=== PATIENT | female | born 1980 | race American Indian/Alaskan Native ===

== ENCOUNTER 2018-05-01 23:00 | Emergency (ER) | payer BC ==
[2018-05-01 23:06] VITALS: RESP 20
[2018-05-01] MEDS ORDERED: DiphenhydrAMINE 50 mg/ml Inj IVP STA (23:18)
[2018-05-01] MEDS ORDERED: Sodium Chloride 0.9% 1,000 ML IV ONE (23:18)
--- NOTE | 2018-05-01 23:22 | C.PDOC ---
History Of Present Illness 37 year old female presents to the ED complaining of headache that began yesterday. She reports onset of headache was gradual. Associated symptoms include dizziness. She denies any fever, vision changes, n/v/d or any other symptoms. Time Seen by Provider: 05/01/18 23:09 Chief Complaint (Nursing): Headache History Per: Patient History/Exam Limitations: no limitations Onset/Duration Of Symptoms: Days (1) Current Symptoms Are (Timing): Still Present Quality: "Pain" Preceeding Symptoms: None Associated Symptoms: denies: Blurred Vision, Nausea, Vomiting Past Medical History Reviewed: Historical Data, Nursing Documentation, Vital Signs Vital Signs: Last Vital Signs Temp 98.3 F 05/01/18 23:01 Pulse 63 05/01/18 23:01 Resp 20 05/01/18 23:01 BP 128/83 05/01/18 23:01 Pulse Ox 99 05/01/18 23:01 - Medical History PMH: No Chronic Diseases Surgical History: Family History: States: No Known Family Hx - Social History Hx Alcohol Use: No Hx Substance Use: No - Immunization History Hx Tetanus Toxoid Vaccination: No Hx Influenza Vaccination: Yes Hx Pneumococcal Vaccination: No Review Of Systems Except As Marked, All Systems Reviewed And Found Negative. Constitutional: Negative for: Fever, Chills Eyes: Negative for: Vision Change Gastrointestinal: Negative for: Nausea, Vomiting, Diarrhea Neurological: Positive for: Headache, Dizziness Physical Exam - Physical Exam Appears: Non-toxic Skin: Warm, Dry Head: Normacephalic Eye(s): bilateral: Normal Inspection, PERRL, EOMI Nose: Normal Oral Mucosa: Moist Neck: Normal ROM Chest: Symmetrical Cardiovascular: Rhythm Regular Respiratory: Normal Breath Sounds, No Rales, No Rhonchi, No Wheezing Gastrointestinal/Abdominal: Soft, No Tenderness Neurological/Psych: Oriented x3, Normal Speech Gait: Steady ED Course And Treatment - Laboratory Results Result Diagrams: 05/01/18 23:40 05/01/18 23:40 O2 Sat by Pulse Oximetry: 99 (RA) Pulse Ox Interpretation: Normal Medical Decision Making Medical Decision Making: suspect benign etiology of griffiths but pt in er persistently requesting head ct. notified of risks of radiation. Orders: - Labwork - UA - Tylenol 975mg PO - Benadryl 25mg IVP - Reglan 10mg IVP - IV fluids On reassessment, patient reports feeling better. She notes headache improved. pt reassesed all symptosm resovle.d Disposition - Disposition Referrals: Zeeshan Zurita MD [Staff Provider] - Disposition: HOME/ ROUTINE Disposition Time: 12:00 Condition: STABLE Additional Instructions: return to er with worsening symptoms or concenrs. please see specialist. Prescriptions: Acetaminophen/Butalbital/Caf [Fioricet] 1 tab PO Q8 PRN #20 tab PRN Reason: Headache Instructions: Headache, Adult Forms: [employer] ([place]) - Clinical Impression Clinical Impression: Headache - Scribe Statement The provider has reviewed the documentation as recorded by the Scribe Rhonda Montoya All medical record entries made by the Scribe were at my direction and personally dictated by me. I have reviewed the chart and agree that the record accurately reflects my personal performance of the history, physical exam, medical decision making, and the department course for this patient. I have also personally directed, reviewed, and agree with the discharge instructions and disposition.
[2018-05-01 23:43] LABS: BASO # 0.1 K/uL (0.0-0.2); BASO % 1.3 % (0.0-2.0); EOS # 0.2 K/uL (0.0-0.7); HEMOGLOBIN 11.7 g/dL (11.0-16.0); LYMPH # 2.3 K/uL (1.0-4.3); LYMPH % 45.6 % (20.0-40.0); MEAN CELL VOLUME 93.1 fL (81.0-99.0); MEAN CORPUSCULAR HEMOGLOBIN 31.9 pg (27.0-31.0); MEAN CORPUSCULAR HGB CONC 34.3 g/dL (33.0-37.0); MEAN PLATELET VOLUME 8.6 fL (7.2-11.7); MONO # 0.4 K/uL (0.0-0.8); MONO % 7.5 % (0.0-10.0); NEUT # 2.1 K/uL (1.8-7.0); NEUT % 41.6 % (50.0-75.0); RBC 3.66 Mil/uL (3.80-5.20); RED CELL DISTRIBUTION WIDTH 13.2 % (11.5-14.5)
[2018-05-01] MEDS ORDERED: Sodium Chloride 0.9% 1,000 ML ONE (23:44)
[2018-05-01] MEDS ORDERED: DiphenhydrAMINE 50 mg/ml Inj ONE (23:44)
[2018-05-01 23:51] LABS: INR 1.1; PROTHROMBIN TIME 11.5 SECONDS (9.7-12.2)
[2018-05-01 23:56] LABS: ALB/GLOB RATIO 1.2 (1.0-2.1); ALBUMIN 4.4 g/dL (3.5-5.0); ALT/SGPT 27 U/L (9-52); AST/SGOT 24 U/L (14-36); BLOOD UREA NITROGEN 10 mg/dL (7-17); CALCIUM 9.6 mg/dl (8.6-10.4); GFR NON-AFRICAN AMERICAN > 60
[2018-05-01 23:57] LABS: HCG,QUALITATIVE URINE NEGATIVE (NEGATIVE); SQUAMOUS EPITHIAL 1 /hpf (0-5); URINE BACTERIA OCC (<OCC); URINE BILIRUBIN NEGATIVE (NEGATIVE); URINE BLOOD 1+ (NEGATIVE); URINE CLARITY Clear (Clear); URINE COLOR Yellow (YELLOW); URINE GLUCOSE (UA) NORMAL (Normal); URINE LEUKOCYTE ESTERASE 1+ Leu/uL (Negative); URINE PROTEIN NEGATIVE (NEGATIVE)
[2018-05-02 02:08] VITALS: BP 121/70; PULSE 81; TEMP 97.2; O2SAT 98
--- NOTE | 2018-05-02 08:52 | CT ---
Date of service: 05/02/2018 PROCEDURE: CT HEAD WITHOUT CONTRAST. HISTORY: ULLOA COMPARISON: No prior TECHNIQUE: Axial computed tomography images were obtained through the head/brain without intravenous contrast. Radiation dose: Total exam DLP = 803.24 mGy-cm. This CT exam was performed using one or more of the following dose reduction techniques: Automated exposure control, adjustment of the mA and/or kV according to patient size, and/or use of iterative reconstruction technique. FINDINGS: HEMORRHAGE: No intracranial hemorrhage. BRAIN: No mass effect or edema. No atrophy or chronic microvascular ischemic changes. VENTRICLES: Unremarkable. No hydrocephalus. CALVARIUM: Unremarkable. PARANASAL SINUSES: Unremarkable as visualized. No significant inflammatory changes. MASTOID AIR CELLS: Unremarkable as visualized. No inflammatory changes. OTHER FINDINGS: None. IMPRESSION: Normal CT of the Head.
== END 2018-05-02 02:08 | disposition home or self-care (01) ==
LOC: C.ER 23:00
DX: R51 Headache (principal)
CPT/HCPCS: 70450; 80053; 81001; 84703; 85025; 85610; 85730; 96361; 96374; 96375; 99285; J1200; J2765; J7030